=== PATIENT | male | born 1970 | race Caucasian/White ===

== ENCOUNTER 2018-04-06 17:41 | Emergency (ER) | payer OTHER ==
[~2018-04-06] VITALS: Ht 180.3 cm; Wt 113.4 kg
[~2018-04-06 17:41] MED LIST: ACETAMINOPHEN-120 ML PO; ASPIRIN EC81 M1 PO; ATIVAN1 MG PO; AZITHROMYCIN 2250 MG PO; CIALIS2.5 MG PO; CLOPIDOGREL75 MG PO; FISH OIL 1,001000 M2 PO; FLONASE 0.05%50 MCG NASAL; FOLGARD TABLET1 EAC1 PO; KEFLEX500 MG PO; LOPRESSOR25 PO; NOHOMEMEDICATIONS; NORCO 5-325 TA1 EACH PO; PREDNISONE 10 M10 MG PO; PREDNISONE50 MG PO; PROTONIX PO; PROTONIX40 M2 PO; PROVENTIL; PROVENTIL HFA6.7 G1 INH; SAW PALMETTO MC; VENTOLIN17 GM INH; ZOCOR40 MG PO
[2018-04-06 18:18] LABS: ABSOLUTE BASOPHILS 0.1 thou/uL (0.0-0.2); ABSOLUTE EOSINOPHILS 0.2 thou/uL (0.0-0.7); ABSOLUTE LYMPHOCYTES 2.3 thou/uL (0.8-5.3); ABSOLUTE MONOCYTES 0.8 thou/uL (0.0-1.2); ABSOLUTE NEUTROPHILS 3.4 thou/uL (1.6-8.1); BASOPHILS 1.3 %; EOSINOPHILS 3.4 %; HEMATOCRIT 50.4 % (42.0-52.0); HEMOGLOBIN 17.2 gm/dL (14.0-18.0); LYMPHOCYTES 34.1 %; MCH 31.9 pg (26.0-34.0); MCHC 34.1 g/dL (28.0-37.0); MCV 93.5 fL (80.0-100.0); MONOCYTES 11.6 %; MPV 7.4 fl. (7.2-11.1); NUCLEATED RBCS 0 /100WBC; PLATELET COUNT* 263 thou/uL (150-400); POLYS 49.6 %; RBC 5.39 mil/uL (4.50-6.00); RDW-CV 13.7 % (10.5-14.5); WBC 6.9 thou/uL (4.0-11.0)
[2018-04-06 18:28] LABS: ANION GAP 5 mmol/L (7-16); BUN 10 mg/dL (7-18); CALCIUM 8.8 mg/dL (8.5-10.1); CHLORIDE 98 mmol/L (98-107); CO2 30 mmol/L (21-32); CREATININE 1.3 mg/dL (0.6-1.3); GLUCOSE 166 mg/dL (70-99); POTASSIUM 4.3 mmol/L (3.5-5.1); SODIUM 133 mmol/L (136-145)
[2018-04-06 18:38] LABS: TROPONIN-I LEVEL <0.06 ng/mL (<0.06)
[2018-04-06 18:42] LABS: ALBUMIN 3.8 g/dL (3.4-5.0); ALKALINE PHOSPHATASE 75 U/L (46-116); LIPASE 214 U/L (73-393); SGOT 23 U/L (15-37); SGPT 58 U/L (30-65); TOTAL BILIRUBIN 0.4 mg/dL (<0.1-1.0); TOTAL PROTEIN 7.8 g/dL (6.4-8.2)
[2018-04-06] MEDS ORDERED: PROAIR HFA8.5 GM INH (19:30)
[2018-04-06] MEDS ORDERED: LOPRESSOR25 PO (19:48)
[2018-04-06] MEDS ORDERED: PLAVIX 75 MG TA75 M1 PO (19:48)
[2018-04-06] MEDS ORDERED: PROTONIX40 M1 PO (19:48)
[2018-04-06 20:15] VITALS: BP 140/90
--- NOTE | 2018-04-07 10:24 | EKG ---
[place] [address] ELECTROCARDIOGRAM REPORT Name: ZARA TEJEDA Room: [facility]#: [id number] Admission: 04/06/18 Attend Phys: Discharge: 04/06/18 Date of : 68 Report #: [id number] THIS REPORT FOR: //name// [facility] ED Test Date: 2018-04-06 Test Time: 18:29:22 Pat Name: ZARA TEJEDA Department: Room: Gender: [employer]: Stefani GANNON : 1970 Requested By: June Leiva Order Number: [id number] MD: Parminder Clay Measurements Intervals [place] Rate: 91 P: 42 NE: 156 QRS: 4 QRSD: 79 T: 29 QT: 318 QTc: 392 Interpretive Statements Sinus rhythm Compared to ECG 09/07/2011 07:39:28 T-wave abnormality no longer present Electronically Signed On 04-07-2018 10:24:41 [employer] by Parminder Clay [email or web address] <ELECTRONICALLY SIGNED> By: Parminder Clay MD, [facility] 04/07/18 1024 1829 28 Parminder Clay MD, FACC /EPI
== END 2018-04-06 20:20 | disposition home or self-care (01) ==
LOC: M.ERS 17:41
PROVIDERS: Physician Assistant
DX: R10.11 Right upper quadrant pain (principal); R10.32 Left lower quadrant pain; R11.0 Nausea; Z76.0 Encounter for issue of repeat prescription; J45.909 Unspecified asthma, uncomplicated; Z90.49 Acquired absence of other specified parts of digestive tract; Z95.5 Presence of coronary angioplasty implant and graft; F17.200 Nicotine dependence, unspecified, uncomplicated; Z88.0 Allergy status to penicillin; Z88.2 Allergy status to sulfonamides; Z88.8 Allergy status to other drugs, medicaments and biological substances